=== PATIENT | female | born 1980 | race Hispanic/Latino ===

== ENCOUNTER 2018-07-04 16:26 | Emergency (ER) | payer BC, SELFPAY ==
[2018-07-04 16:42] VITALS: BP 159/81; PULSE 69; RESP 100; TEMP 37; BMI 34.3
--- NOTE | 2018-07-04 18:35 | ED.SOB ---
HPI - SOB/Dyspnea <LAURA Dunn - Last Filed: 07/04/18 22:14> General Chief Complaint: Shortness of Breath/Dyspnea Stated Complaint: SOB,PAIN AROUND BACK ,LIGHT HEADED Time Seen by Provider: 07/04/18 18:32 Source: patient Mode of arrival: ambulatory Limitations: no limitations History of Present Illness 38-year-old healthy female that is a nonsmoker here for complaint of having chest pain that started at 8 o'clock this morning. She states that she was shopping when she went to go pick down item when pain started to her sternal area. She states the pain is also in her upper back between her shoulder blades. she denies any trauma to the area. She reports increased pain with motion. She also reported having shortness of breath. she was seen at the urgent care clinic earlier today and EKG was obtained and was unremarkable. She was told that he thought that it might be nerves that are causing her symptoms. she denies any nausea vomiting. No diaphoresis. she denies any recent travel. No swelling to her lower extremities. Related Data Previous Rx's Medication Instructions Recorded esomeprazole magnesium [Nexium] 20 mg PO DAILY #14 cap 07/04/18 Allergies Allergy/AdvReac Type Severity Reaction Status Date / Time bupropion [From CONTRAVE] Allergy Intermediate HIVES/RASH Verified 07/04/18 20:55 naltrexone [From CONTRAVE] Allergy Intermediate HIVES/RASH Verified 07/04/18 20:55 Review of Systems <LAURA Dunn - Last Filed: 07/04/18 22:14> Constitutional Denies chills, Denies fatigue, Denies fever(s), Denies lethargy and Denies weakness Eyes Denies change in vision, Denies eye discharge, Denies irritation and Denies loss of vision ENT Ears, Nose, Mouth, and Throat: Denies change in voice, Denies neck pain, Denies sore throat and Denies throat swelling Cardiovascular Reports chest pain and Reports dyspnea Respiratory Reports dyspnea and Denies wheezing Genitourinary Denies hematuria, Denies flank pain, Denies urinary incontinence and Denies urinary urgency Musculoskeletal Denies neck pain Integumentary/Breasts Denies pruritus, Denies erythema, Denies rash and Denies wounds Neurologic Denies confusion, Denies loss of vision and Denies weakness Psychiatric Denies anxiety, Denies confusion, Denies depression, Denies homicidal ideation and Denies suicidal ideation Endocrine Denies fatigue and Denies flushing Hematologic/Lymphatic Denies easy bruising Allergic/Immunologic Denies urticaria, Denies throat swelling and Denies wheezing Exam <LAURA Dunn - Last Filed: 07/04/18 22:14> Initial Vital Signs Initial Vital Signs: Vital Signs Temperature 98.6 F 07/04/18 16:42 Pulse Rate 69 07/04/18 16:42 Respiratory Rate 100 H 07/04/18 16:42 Blood Pressure 159/81 H 07/04/18 16:42 Const General: cooperative and well developed Nutritional Appearance: well nourished Orientation: alert, awake, oriented x3 and not confused HENHI Mouth: oral mucosae normal and moist mucous membranes Eyes Conjunctivae: conjunctivae normal Sclera: sclerae normal Pupils: PERRL EOM: EOM intact bilaterally Chest Chest: normal inspection of the chest Resp Effort & Inspection: normal respiratory effort, able to speak in complete sentences, no respiratory distress and no use of accessory muscles Auscultation: clear to auscultation bilaterally, no rales, no rhonchi and no wheezes Cardio Rate: regular rate Rhythm: regular rhythm Heart Sounds: no click, no gallops, no murmurs and no rubs Pulses: normal peripheral pulses GI Inspection: non-distended Palpation: soft, no hepatosplenomegaly, No guarding, No pulsatile mass and No tender Auscultation: normal bowel sounds Skin General: no rashes or lesions noted, No jaundice and No petechiae Neuro General: alert, oriented x3, gait normal and no focal motor deficits Speech: speech normal <Rosanna Cueto DO - Last Filed: 07/05/18 22:32> Initial Vital Signs Initial Vital Signs: Vital Signs Temperature 98.6 F 07/04/18 16:42 Pulse Rate 69 07/04/18 16:42 Respiratory Rate 100 H 07/04/18 16:42 Blood Pressure 159/81 H 07/04/18 16:42 Scores <LAURA Dunn - Last Filed: 07/04/18 22:14> HEART Score Heart Score history: Slightly Suspicious Heart Score EKG: Normal Heart Score Age: < 45 years old Heart Score risk factors: No known risk factors Heart Score troponin: < or = to normal limit Heart Score Total: 0 PERC Score Age greater than or equal to 50 years: No Heart rate greater than or equal to 100 bpm: No Room Air O2 Sat less than 95%: No Unilateral leg swelling: No Recent trauma or surgery: No Hemoptysis: No Prior PE or DVT: No Hormone Use: No Total PERC Score: 0 Course <LAURA Dunn - Last Filed: 07/04/18 22:14> Orders Ordered: Discontinued Medications Sodium Chloride (Normal Saline 0.9%) 1,000 mls @ 150 mls/hr IV CONT HERMINIA Last Infusion: 07/04/18 20:55 Dose: 0 mls/hr Admin: 07/04/18 19:48 Dose: 150 mls/hr Ketorolac Tromethamine (Toradol) 30 mg IV NOW ONE Stop: 07/04/18 18:56 Last Admin: 07/04/18 19:47 Dose: 30 mg Pantoprazole Sodium (Protonix) 20 mg IV NOW ONE Stop: 07/04/18 18:56 Last Admin: 07/04/18 19:48 Dose: 20 mg Vital Signs - 8 hr 07/04/18 16:42 07/04/18 18:37 07/04/18 19:42 Temperature 98.6 F Pulse Rate 69 72 78 Respiratory Rate 100 H 14 20 Blood Pressure 159/81 H Blood Pressure [Left Arm] 132/49 L 120/68 Pulse Oximetry 100 100 07/04/18 19:52 07/04/18 20:30 07/04/18 20:57 Temperature 98.6 F Pulse Rate 83 72 68 Respiratory Rate 18 16 16 Blood Pressure 124/63 Blood Pressure [Left Arm] 120/68 124/63 Pulse Oximetry 98 97 100 <Rosanna Cueto DO - Last Filed: 07/05/18 22:32> Orders Ordered: Discontinued Medications Sodium Chloride (Normal Saline 0.9%) 1,000 mls @ 150 mls/hr IV CONT HERMINIA Last Infusion: 07/04/18 20:55 Dose: 0 mls/hr Admin: 07/04/18 19:48 Dose: 150 mls/hr Ketorolac Tromethamine (Toradol) 30 mg IV NOW ONE Stop: 07/04/18 18:56 Last Admin: 07/04/18 19:47 Dose: 30 mg Pantoprazole Sodium (Protonix) 20 mg IV NOW ONE Stop: 07/04/18 18:56 Last Admin: 07/04/18 19:48 Dose: 20 mg Vital Signs - 8 hr 07/04/18 16:42 07/04/18 18:37 07/04/18 19:42 Temperature 98.6 F Pulse Rate 69 72 78 Respiratory Rate 100 H 14 20 Blood Pressure 159/81 H Blood Pressure [Left Arm] 132/49 L 120/68 Pulse Oximetry 100 100 07/04/18 19:52 07/04/18 20:30 07/04/18 20:57 Temperature 98.6 F Pulse Rate 83 72 68 Respiratory Rate 18 16 16 Blood Pressure 124/63 Blood Pressure [Left Arm] 120/68 124/63 Pulse Oximetry 98 97 100 MDM - SOB/Dyspnea <LAURA Dunn - Last Filed: 07/04/18 22:14> Lab Data Result diagrams: 07/04/18 19:35 07/04/18 19:35 Lab Results 07/04/18 07/04/18 07/04/18 Range/Units 19:35 19:35 19:35 WBC 8.7 (4.5-11.0) X10^3/uL RBC 4.29 (4.0-5.2) X10^6/uL Hgb 13.5 (12.0-16.0) g/dL Hct 39.6 (36-46) % MCV 92.5 (80-100) fL MCH 31.5 (26-34) PG MCHC 34.1 (30-36) % RDW 13.1 (11.6-14.8) % Plt Count 356 (150-400) X10^3/uL Neut % (Auto) 54.0 (50-75) % Lymph % (Auto) 38.6 (25-40) % Bonner % (Auto) 4.6 (3-14) % Eos % (Auto) 1.4 L (2-4) % Baso % (Auto) 1.4 (0-2) % Neut # (Auto) 4700 (0490-6583) /uL D-Dimer < 200 (<230) ng/mL Sodium 144 (137-145) mmol/L Potassium 3.7 (3.4-5.1) mmol/L Chloride 104 (98-107) mmol/L Carbon Dioxide 27 (22-32) mmol/L BUN 13 (7-17) mg/dL Creatinine 0.70 (0.52-1.04) mg/dL Estimated GFR > 60.0 (>60) mL/min BUN/Creatinine Ratio 18.6 (6-22) Glucose 97 (70-100) mg/dL Calcium 10.6 H (8.4-10.2) mg/dL Total Bilirubin 0.5 (0.2-1.3) mg/dL AST 40 H (14-36) IU/L ALT 56 H (9-52) IU/L Alkaline Phosphatase 57 (38-126) U/L Total Creatine Kinase 87 (30-135) U/L CK-MB (CK-2) TNP CK-MB (CK-2) Rel Index TNP Troponin I < 0.012 (0.01-0.034) ng/mL Total Protein 8.4 H (6.3-8.2) g/dL Albumin 5.0 (3.5-5.0) g/dL Globulin 3.4 (1.7-4.1) g/dL Albumin/Globulin Ratio 1.5 (1.0-2.8) Point of Care Testing Test Results Negative Urine Dip Bedside Urine Glucose Negative Bedside Urine Bilirubin - Negative Bedside Urine Ketone - Negative Urine Specific Tunas 1.015 Bedside Urine Occult Blood ++ Bedside Urine pH 6.0 Bedside Urine Protein - Negative Bedside Urine Urobilinogen - Negative Bedside Urine Nitrite - Negative Bedside Urine Leukocytes - Negative Esterase Imaging Data Chest x-ray: Radiologist's impression: [address] [place] [id number] XRay Report Signed Patient: Sania Alanis BMR#: [id number] : 1980Acct:[id number] Age/Sex: 38 / FDate of Service: 07/04/18 Loc: ED Accession Number: [id number] Procedure: XR chest 1V Ordering Provider: Sha Grossman PROCEDURE: XR CHEST 1V INDICATIONS: chest pain TECHNIQUE: One view of the chest was acquired. COMPARISON: None. FINDINGS: Surgical changes and devices: None. Lungs and pleura: No pleural effusions or pneumothorax. Lungs are clear. Mediastinum: Mediastinal contours appear normal. Heart size is normal. Bones and chest wall: No suspicious bony lesions. Overlying soft tissues appear unremarkable. IMPRESSION: No acute cardiopulmonary findings. Dictated by: Odilia Canada M.D. on 07/04/2018 at 19:21 Approved by: Odilia Canada M.D. on 07/04/2018 at 19:21 ECG Data Interpretation: EKG shows normal sinus rhythm with no ST elevation or depression. No ectopy. Ventricular rate of 83. Pr interval of 132. QRS duration of 92. QT of 386 MDM Narrative Medical decision making narrative: CBC and Chem panel were obtained were unremarkable. Cardiac enzymes at 12 hr post start of symptoms were obtained and were negative. Heart score and perc scores were negative. due to chest pain to anterior and also to posterior back aortic dissection was considered. However seems on likely as D-dimer was less than 200. chest x-ray was obtained and was negative for any acute findings. Patient was given Toradol and Protonix in the emergency room which relieved her symptoms she no longer had any chest pain. EKG shows normal sinus rhythm with no ST elevation or depression. No ectopy. Differential between chest wall pain and acid indigestion. [id number] ibuprofen as needed for any discomfort. Small amount of Nexium is prescribed to see if it helps her symptoms. Follow up with primary care provider later this week. For any worsening symptoms return to the emergency room. <Rosanna Cueto, - Last Filed: 07/05/18 22:32> Lab Data Attestation: I reviewed the patient's lab results. Lab Results 07/04/18 07/04/18 07/04/18 Range/Units 19:35 19:35 19:35 WBC 8.7 (4.5-11.0) X10^3/uL RBC 4.29 (4.0-5.2) X10^6/uL Hgb 13.5 (12.0-16.0) g/dL Hct 39.6 (36-46) % MCV 92.5 (80-100) fL MCH 31.5 (26-34) PG MCHC 34.1 (30-36) % RDW 13.1 (11.6-14.8) % Plt Count 356 (150-400) X10^3/uL Neut % (Auto) 54.0 (50-75) % Lymph % (Auto) 38.6 (25-40) % Bonner % (Auto) 4.6 (3-14) % Eos % (Auto) 1.4 L (2-4) % Baso % (Auto) 1.4 (0-2) % Neut # (Auto) 4700 (0740-8683) /uL D-Dimer < 200 (<230) ng/mL Sodium 144 (137-145) mmol/L Potassium 3.7 (3.4-5.1) mmol/L Chloride 104 (98-107) mmol/L Carbon Dioxide 27 (22-32) mmol/L BUN 13 (7-17) mg/dL Creatinine 0.70 (0.52-1.04) mg/dL Estimated GFR > 60.0 (>60) mL/min BUN/Creatinine Ratio 18.6 (6-22) Glucose 97 (70-100) mg/dL Calcium 10.6 H (8.4-10.2) mg/dL Total Bilirubin 0.5 (0.2-1.3) mg/dL AST 40 H (14-36) IU/L ALT 56 H (9-52) IU/L Alkaline Phosphatase 57 (38-126) U/L Total Creatine Kinase 87 (30-135) U/L CK-MB (CK-2) TNP CK-MB (CK-2) Rel Index TNP Troponin I < 0.012 (0.01-0.034) ng/mL Total Protein 8.4 H (6.3-8.2) g/dL Albumin 5.0 (3.5-5.0) g/dL Globulin 3.4 (1.7-4.1) g/dL Albumin/Globulin Ratio 1.5 (1.0-2.8) Point of Care Testing Test Results Negative Urine Dip Bedside Urine Glucose Negative Bedside Urine Bilirubin - Negative Bedside Urine Ketone - Negative Urine Specific Tun[place] 1.015 Bedside Urine Occult Blood ++ Bedside Urine pH 6.0 Bedside Urine Protein - Negative Bedside Urine Urobilinogen - Negative Bedside Urine Nitrite - Negative Bedside Urine Leukocytes - Negative Esterase ECG Data Attestation: I personally reviewed and interpreted this ECG as follows: Prior ECG tracings: not available for review Interpretation: Normal sinus rhythm rate 83, MD interval 132, no ST changes no priors to compare Discharge Plan Departure Patient Disposition: Home Clinical Impression: Chest pain Discharge Date/Time: 07/04/18 21:13 Interventions: ED Discharge Assessment Last Done: 07/04/18 20:57 Instructions: DI for Atypical Chest Pain Activity Restrictions/Additional Instructions: laboratory results and imaging today along with EKG were unremarkable. Muscle skeletal pain can cause with similar symptoms and may be chest wall related. Use [id number] ibuprofen as needed for any discomfort. Symptoms may also be caused by acid and adjusted and your symptoms were reduced after given medications for discomfort and also acid indigestion. You are prescribed esomeprazole which helps with stomach acid to see if it helps with symptoms use as directed. use [id number] ibuprofen for discomfort. follow up with her primary care provider in the next few days for re-evaluation. For any worsening symptoms return to the emergency room. Prescriptions: New esomeprazole magnesium [Nexium] 20 mg capsule,delayed release(DR/EC) 20 mg PO DAILY Qty: 14 RF: 0 Referrals: Claribel Mcdonald [Primary Care Provider] - <Rosanna Cueto DO - Last Filed: 07/05/18 22:32> Cosign ED Attending Wesature Attestation: I was immediately available in the department for consultation. Documentation has been reviewed. I agree with assessment and plan.
[2018-07-04 18:37] VITALS: BP 132/49; PULSE 72; RESP 14; O2SAT 100
--- NOTE | 2018-07-04 18:53 | ED_ITS ---
HPI - SOB/Dyspnea <LAURA Dunn - Last Filed: 07/04/18 22:14> General Chief Complaint: Shortness of Breath/Dyspnea Stated Complaint: SOB,PAIN AROUND BACK ,LIGHT HEADED Time Seen by Provider: 07/04/18 18:32 Source: patient Mode of arrival: ambulatory Limitations: no limitations History of Present Illness 38-year-old healthy female that is a nonsmoker here for complaint of having chest pain that started at 8 o'clock this morning. She states that she was shopping when she went to go pick down item when pain started to her sternal area. She states the pain is also in her upper back between her shoulder blades. she denies any trauma to the area. She reports increased pain with motion. She also reported having shortness of breath. she was seen at the urgent care clinic earlier today and EKG was obtained and was unremarkable. She was told that he thought that it might be nerves that are causing her symptoms. she denies any nausea vomiting. No diaphoresis. she denies any recent travel. No swelling to her lower extremities. Related Data Previous Rx's Medication Instructions Recorded esomeprazole magnesium [Nexium] 20 mg PO DAILY #14 cap 07/04/18 Allergies Allergy/AdvReac Type Severity Reaction Status Date / Time bupropion [From CONTRAVE] Allergy Intermediate HIVES/RASH Verified 07/04/18 20: 55 naltrexone [From CONTRAVE] Allergy Intermediate HIVES/RASH Verified 07/04/18 20: 55 Review of Systems <LAURA Dunn - Last Filed: 07/04/18 22:14> Constitutional Denies chills, Denies fatigue, Denies fever(s), Denies lethargy and Denies weakness Eyes Denies change in vision, Denies eye discharge, Denies irritation and Denies loss of vision ENT Ears, Nose, Mouth, and Throat: Denies change in voice, Denies neck pain, Denies sore throat and Denies throat swelling Cardiovascular Reports chest pain and Reports dyspnea Respiratory Reports dyspnea and Denies wheezing Genitourinary Denies hematuria, Denies flank pain, Denies urinary incontinence and Denies urinary urgency Musculoskeletal Denies neck pain Integumentary/Breasts Denies pruritus, Denies erythema, Denies rash and Denies wounds Neurologic Denies confusion, Denies loss of vision and Denies weakness Psychiatric Denies anxiety, Denies confusion, Denies depression, Denies homicidal ideation and Denies suicidal ideation Endocrine Denies fatigue and Denies flushing Hematologic/Lymphatic Denies easy bruising Allergic/Immunologic Denies urticaria, Denies throat swelling and Denies wheezing Exam <LAURA Dunn - Last Filed: 07/04/18 22:14> Initial Vital Signs Initial Vital Signs: Vital Signs Temperature 98.6 F 07/04/18 16:42 Pulse Rate 69 07/04/18 16:42 Respiratory Rate 100 H 07/04/18 16:42 Blood Pressure 159/81 H 07/04/18 16:42 Const General: cooperative and well developed Nutritional Appearance: well nourished Orientation: alert, awake, oriented x3 and not confused HENME Mouth: oral mucosae normal and moist mucous membranes Eyes Conjunctivae: conjunctivae normal Sclera: sclerae normal Pupils: PERRL EOM: EOM intact bilaterally Chest Chest: normal inspection of the chest Resp Effort & Inspection: normal respiratory effort, able to speak in complete sentences, no respiratory distress and no use of accessory muscles Auscultation: clear to auscultation bilaterally, no rales, no rhonchi and no wheezes Cardio Rate: regular rate Rhythm: regular rhythm Heart Sounds: no click, no gallops, no murmurs and no rubs Pulses: normal peripheral pulses GI Inspection: non-distended Palpation: soft, no hepatosplenomegaly, No guarding, No pulsatile mass and No tender Auscultation: normal bowel sounds Skin General: no rashes or lesions noted, No jaundice and No petechiae Neuro General: alert, oriented x3, gait normal and no focal motor deficits Speech: speech normal <Rosanna Cueto DO - Last Filed: 07/05/18 22:32> Initial Vital Signs Initial Vital Signs: Vital Signs Temperature 98.6 F 07/04/18 16:42 Pulse Rate 69 07/04/18 16:42 Respiratory Rate 100 H 07/04/18 16:42 Blood Pressure 159/81 H 07/04/18 16:42 Scores <LAURA Dunn - Last Filed: 07/04/18 22:14> HEART Score Heart Score history: Slightly Suspicious Heart Score EKG: Normal Heart Score Age: < 45 years old Heart Score risk factors: No known risk factors Heart Score troponin: < or = to normal limit Heart Score Total: 0 PERC Score Age greater than or equal to 50 years: No Heart rate greater than or equal to 100 bpm: No Room Air O2 Sat less than 95%: No Unilateral leg swelling: No Recent trauma or surgery: No Hemoptysis: No Prior PE or DVT: No Hormone Use: No Total PERC Score: 0 Course <LAURA Dunn - Last Filed: 07/04/18 22:14> Orders Ordered: Discontinued Medications Sodium Chloride (Normal Saline 0.9%) 1,000 mls @ 150 mls/hr IV CONT HERMINIA Last Infusion: 07/04/18 20:55 Dose: 0 mls/hr Admin: 07/04/18 19:48 Dose: 150 mls/hr Ketorolac Tromethamine (Toradol) 30 mg IV NOW ONE Stop: 07/04/18 18:56 Last Admin: 07/04/18 19:47 Dose: 30 mg Pantoprazole Sodium (Protonix) 20 mg IV NOW ONE Stop: 07/04/18 18:56 Last Admin: 07/04/18 19:48 Dose: 20 mg Vital Signs - 8 hr 07/04/18 16:42 07/04/18 18:37 07/04/18 19:42 Temperature 98.6 F Pulse Rate 69 72 78 Respiratory Rate 100 H 14 20 Blood Pressure 159/81 H Blood Pressure [Left Arm] 132/49 L 120/68 Pulse Oximetry 100 100 07/04/18 19:52 07/04/18 20:30 07/04/18 20:57 Temperature 98.6 F Pulse Rate 83 72 68 Respiratory Rate 18 16 16 Blood Pressure 124/63 Blood Pressure [Left Arm] 120/68 124/63 Pulse Oximetry 98 97 100 <Rosanna Cueto DO - Last Filed: 07/05/18 22:32> Orders Ordered: Discontinued Medications Sodium Chloride (Normal Saline 0.9%) 1,000 mls @ 150 mls/hr IV CONT HERMINIA Last Infusion: 07/04/18 20:55 Dose: 0 mls/hr Admin: 07/04/18 19:48 Dose: 150 mls/hr Ketorolac Tromethamine (Toradol) 30 mg IV NOW ONE Stop: 07/04/18 18:56 Last Admin: 07/04/18 19:47 Dose: 30 mg Pantoprazole Sodium (Protonix) 20 mg IV NOW ONE Stop: 07/04/18 18:56 Last Admin: 07/04/18 19:48 Dose: 20 mg Vital Signs - 8 hr 07/04/18 16:42 07/04/18 18:37 07/04/18 19:42 Temperature 98.6 F Pulse Rate 69 72 78 Respiratory Rate 100 H 14 20 Blood Pressure 159/81 H Blood Pressure [Left Arm] 132/49 L 120/68 Pulse Oximetry 100 100 07/04/18 19:52 07/04/18 20:30 07/04/18 20:57 Temperature 98.6 F Pulse Rate 83 72 68 Respiratory Rate 18 16 16 Blood Pressure 124/63 Blood Pressure [Left Arm] 120/68 124/63 Pulse Oximetry 98 97 100 MDM - SOB/Dyspnea <LAURA Dunn - Last Filed: 07/04/18 22:14> Lab Data Result diagrams: 07/04/18 19:35 07/04/18 19:35 Lab Results 07/04/18 07/04/18 07/04/18 Range/Units 19:35 19:35 19:35 WBC 8.7 (4.5-11.0) X10^3/uL RBC 4.29 (4.0-5.2) X10^6/uL Hgb 13.5 (12.0-16.0) g/dL Hct 39.6 (36-46) % MCV 92.5 (80-100) fL MCH 31.5 (26-34) PG MCHC 34.1 (30-36) % RDW 13.1 (11.6-14.8) % Plt Count 356 (150-400) X10^3/uL Neut % (Auto) 54.0 (50-75) % Lymph % (Auto) 38.6 (25-40) % Bowman % (Auto) 4.6 (3-14) % Eos % (Auto) 1.4 L (2-4) % Baso % (Auto) 1.4 (0-2) % Neut # (Auto) 4700 (7994-6688) /uL D-Dimer < 200 (<230) ng/mL Sodium 144 (137-145) mmol/L Potassium 3.7 (3.4-5.1) mmol/L Chloride 104 (98-107) mmol/L Carbon Dioxide 27 (22-32) mmol/L BUN 13 (7-17) mg/dL Creatinine 0.70 (0.52-1.04) mg/dL Estimated GFR > 60.0 (>60) mL/min BUN/Creatinine Ratio 18.6 (6-22) Glucose 97 (70-100) mg/dL Calcium 10.6 H (8.4-10.2) mg/dL Total Bilirubin 0.5 (0.2-1.3) mg/dL AST 40 H (14-36) IU/L ALT 56 H (9-52) IU/L Alkaline Phosphatase 57 (38-126) U/L Total Creatine Kinase 87 (30-135) U/L CK-MB (CK-2) TNP CK-MB (CK-2) Rel Index TNP Troponin I < 0.012 (0.01-0.034) ng/mL Total Protein 8.4 H (6.3-8.2) g/dL Albumin 5.0 (3.5-5.0) g/dL Globulin 3.4 (1.7-4.1) g/dL Albumin/Globulin Ratio 1.5 (1.0-2.8) Point of Care Testing Test Results Negative Urine Dip Bedside Urine Glucose Negative Bedside Urine Bilirubin - Negative Bedside Urine Ketone - Negative Urine Specific Laura 1.015 Bedside Urine Occult Blood ++ Bedside Urine pH 6.0 Bedside Urine Protein - Negative Bedside Urine Urobilinogen - Negative Bedside Urine Nitrite - Negative Bedside Urine Leukocytes - Negative Esterase Imaging Data Chest x-ray: Radiologist's impression: [address] [place] [id number] XRay Report Signed Patient: Sania Alanis BMR#: [id number] : 1980Acct:[id number] Age/Sex: 38 / FDate of Service: 07/04/18 Loc: ED Accession Number: [id number] Procedure: XR chest 1V Ordering Provider: Sha Grossman PROCEDURE: XR CHEST 1V INDICATIONS: chest pain TECHNIQUE: One view of the chest was acquired. COMPARISON: None. FINDINGS: Surgical changes and devices: None. Lungs and pleura: No pleural effusions or pneumothorax. Lungs are clear. Mediastinum: Mediastinal contours appear normal. Heart size is normal. Bones and chest wall: No suspicious bony lesions. Overlying soft tissues appear unremarkable. IMPRESSION: No acute cardiopulmonary findings. Dictated by: Odilia Canada M.D. on 07/04/2018 at 19:21 Approved by: Odilia Canada M.D. on 07/04/2018 at 19:21 ECG Data Interpretation: EKG shows normal sinus rhythm with no ST elevation or depression. No ectopy. Ventricular rate of 83. Pr interval of 132. QRS duration of 92. QT of 386 MDM Narrative Medical decision making narrative: CBC and Chem panel were obtained were unremarkable. Cardiac enzymes at 12 hr post start of symptoms were obtained and were negative. Heart score and perc scores were negative. due to chest pain to anterior and also to posterior back aortic dissection was considered. However seems on likely as D-dimer was less than 200. chest x-ray was obtained and was negative for any acute findings. Patient was given Toradol and Protonix in the emergency room which relieved her symptoms she no longer had any chest pain. EKG shows normal sinus rhythm with no ST elevation or depression. No ectopy. Differential between chest wall pain and acid indigestion. [id number] ibuprofen as needed for any discomfort. Small amount of Nexium is prescribed to see if it helps her symptoms. Follow up with primary care provider later this week. For any worsening symptoms return to the emergency room. <Rosanna Cueto, - Last Filed: 07/05/18 22:32> Lab Data Attestation: I reviewed the patient's lab results. Lab Results 07/04/18 07/04/18 07/04/18 Range/Units 19:35 19:35 19:35 WBC 8.7 (4.5-11.0) X10^3/uL RBC 4.29 (4.0-5.2) X10^6/uL Hgb 13.5 (12.0-16.0) g/dL Hct 39.6 (36-46) % MCV 92.5 (80-100) fL MCH 31.5 (26-34) PG MCHC 34.1 (30-36) % RDW 13.1 (11.6-14.8) % Plt Count 356 (150-400) X10^3/uL Neut % (Auto) 54.0 (50-75) % Lymph % (Auto) 38.6 (25-40) % Bowman % (Auto) 4.6 (3-14) % Eos % (Auto) 1.4 L (2-4) % Baso % (Auto) 1.4 (0-2) % Neut # (Auto) 4700 (5442-6249) /uL D-Dimer < 200 (<230) ng/mL Sodium 144 (137-145) mmol/L Potassium 3.7 (3.4-5.1) mmol/L Chloride 104 (98-107) mmol/L Carbon Dioxide 27 (22-32) mmol/L BUN 13 (7-17) mg/dL Creatinine 0.70 (0.52-1.04) mg/dL Estimated GFR > 60.0 (>60) mL/min BUN/Creatinine Ratio 18.6 (6-22) Glucose 97 (70-100) mg/dL Calcium 10.6 H (8.4-10.2) mg/dL Total Bilirubin 0.5 (0.2-1.3) mg/dL AST 40 H (14-36) IU/L ALT 56 H (9-52) IU/L Alkaline Phosphatase 57 (38-126) U/L Total Creatine Kinase 87 (30-135) U/L CK-MB (CK-2) TNP CK-MB (CK-2) Rel Index TNP Troponin I < 0.012 (0.01-0.034) ng/mL Total Protein 8.4 H (6.3-8.2) g/dL Albumin 5.0 (3.5-5.0) g/dL Globulin 3.4 (1.7-4.1) g/dL Albumin/Globulin Ratio 1.5 (1.0-2.8) Point of Care Testing Test Results Negative Urine Dip Bedside Urine Glucose Negative Bedside Urine Bilirubin - Negative Bedside Urine Ketone - Negative Urine Specific Laura 1.015 Bedside Urine Occult Blood ++ Bedside Urine pH 6.0 Bedside Urine Protein - Negative Bedside Urine Urobilinogen - Negative Bedside Urine Nitrite - Negative Bedside Urine Leukocytes - Negative Esterase ECG Data Attestation: I personally reviewed and interpreted this ECG as follows: Prior ECG tracings: not available for review Interpretation: Normal sinus rhythm rate 83, MO interval 132, no ST changes no priors to compare Discharge Plan Departure Patient Disposition: Home Clinical Impression: Chest pain Discharge Date/Time: 07/04/18 21:13 Interventions: ED Discharge Assessment Last Done: 07/04/18 20:57 Instructions: DI for Atypical Chest Pain Activity Restrictions/Additional Instructions: laboratory results and imaging today along with EKG were unremarkable. Muscle skeletal pain can cause with similar symptoms and may be chest wall related. Use [id number] ibuprofen as needed for any discomfort. Symptoms may also be caused by acid and adjusted and your symptoms were reduced after given medications for discomfort and also acid indigestion. You are prescribed esomeprazole which helps with stomach acid to see if it helps with symptoms use as directed. use [id number] ibuprofen for discomfort. follow up with her primary care provider in the next few days for re-evaluation. For any worsening symptoms return to the emergency room. Prescriptions: New esomeprazole magnesium [Nexium] 20 mg capsule,delayed release(DR/EC) 20 mg PO DAILY Qty: 14 RF: 0 Referrals: Claribel Mcdonald [Primary Care Provider] - <Rosanna Cueto DO - Last Filed: 07/05/18 22:32> Cosign ED Attending Wesature Attestation: I was immediately available in the department for consultation. Documentation has been reviewed. I agree with assessment and plan.
[2018-07-04 19:42] VITALS: BP 120/68; PULSE 78; RESP 20; O2SAT 100
[2018-07-04 19:46] LABS: Add Manual Diff / Slide Review NO; Basophils Percent Auto 1.4 % (0-2); Eosinophils Percent Auto 1.4 % (2-4); Hematocrit 39.6 % (36-46); Hemoglobin 13.5 g/dL (12.0-16.0); Lymphocytes Percent Auto 38.6 % (25-40); Mean Corpuscular HGB Conc 34.1 % (30-36); Mean Corpuscular Hemoglobin 31.5 PG (26-34); Mean Corpuscular Volume 92.5 fL (80-100); Monocytes Percent Auto 4.6 % (3-14); Neutrophils Absolute Auto 4700 /uL (3000-5900); Platelet Count 356 X10^3/uL (150-400); Red Blood Cell Count 4.29 X10^6/uL (4.0-5.2); Red Cell Distribution Width 13.1 % (11.6-14.8); White Blood Cell Count 8.7 X10^3/uL (4.5-11.0)
[2018-07-04] MEDS: KETOROLAC 60 MG/2 ML VIAL 30 MG IV (19:47)
[2018-07-04] MEDS: PANTOPRAZOLE 40 MG VIAL 20 MG IV (19:48)
[2018-07-04] MEDS: SODIUM CHLORIDE 0.9% 1,000 ML 150 ML IV (19:48)
[2018-07-04 19:52] VITALS: BP 120/68; PULSE 83; RESP 18; O2SAT 98
[2018-07-04 19:57] LABS: Alanine Aminotransferase 56 IU/L (9-52); Albumin Globulin Ratio 1.5 (1.0-2.8); Alkaline Phosphatase 57 U/L (38-126); Aspartate Aminotransferase 40 IU/L (14-36); BUN Creatinine Ratio 18.6 (6-22); Bilirubin Total 0.5 mg/dL (0.2-1.3); Blood Urea Nitrogen 13 mg/dL (7-17); Calcium 10.6 mg/dL (8.4-10.2); Carbon Dioxide 27 mmol/L (22-32); Chloride 104 mmol/L (98-107); Creatine Kinase 87 U/L (30-135); Estimated Glomerular Filt Rate > 60.0 mL/min (>60); Globulin 3.4 g/dL (1.7-4.1); Glucose 97 mg/dL (70-100); HEMOLYSIS < 15 (0-50); Potassium 3.7 mmol/L (3.4-5.1); Sodium 144 mmol/L (137-145); Total Protein 8.4 g/dL (6.3-8.2)
[2018-07-04 20:09] LABS: Troponin I < 0.012 ng/mL (0.01-0.034)
[2018-07-04 20:30] VITALS: BP 124/63; PULSE 72; RESP 16; O2SAT 97
[2018-07-04 20:36] LABS: D Dimer < 200 ng/mL (<230)
[2018-07-04 20:57] VITALS: BP 124/63; PULSE 68; RESP 16; TEMP 37; O2SAT 100
== END 2018-07-04 21:13 | disposition home or self-care (01) ==
PROVIDERS: Emergency Provider Nurse Practitioner Family; PCP Internal Medicine
DX: R07.89 Other chest pain (principal)
CPT/HCPCS: 36591; 71045; 80053; 81003; 81025; 82550; 84484; 85025; 85379; 93005; 93010; 96361; 96374; 96375; 99283; 99285; C9113; J1885

== ENCOUNTER → 2019-04-20 09:33 | Outpatient (CLI) | payer BC, SELFPAY ==
--- NOTE | 2019-04-20 | DI.RAD.S_ITS ---
PROCEDURE: XR HAND RT MIN 3V INDICATIONS: acute hand pain TECHNIQUE: 3 views of the hand(s) acquired. COMPARISON: None. FINDINGS: Bones: No fractures or dislocations. Carpal bones are normally aligned. No suspicious bony lesions. Soft tissues: No suspicious soft tissue calcifications. IMPRESSION: No source of acute hand pain is found, no inflammation or trauma is seen. Dictated by: Mauro Gilbert M.D. on 04/20/2019 at 10:15 Approved by: Mauro Gilbert M.D. on 04/20/2019 at 10:15
== END ==
PROVIDERS: PCP Internal Medicine; Visit Provider Internal Medicine
DX: M79.641 Pain in right hand (principal)
CPT/HCPCS: 73130